=== PATIENT | female | born 1980 | race Native Hawaiian/Other Pacific Islander ===

== ENCOUNTER 2017-04-04 12:40 | Observation (INO) | payer OTHER ==
[~2017-04-04] VITALS: Ht 180.3 cm; Wt 145.4 kg
[2017-04-04 12:50] VITALS: BP 168/102; TEMP 99
[2017-04-04 13:46] LABS: PLATELET COUNT 281 K/uL (152-353)
[2017-04-04 13:50] VITALS: BP 138/94
[2017-04-04 13:50] LABS: POTASSIUM 3.5 mmol/L (3.6-5.2); SODIUM 136 mmol/L (136-145)
[2017-04-04 14:20] VITALS: BP 145/97
[2017-04-04 14:37] LABS: PARTIAL THROMBOPLASTIN TIME 27.2 SECONDS (24.5-33.6)
[2017-04-04 14:55] VITALS: BP 146/99
--- NOTE | 2017-04-04 15:30 | NUR ---
Pt. ADMITTED TO ROOM 1114. Pt. C/O CHEST PAIN. ONSET THIS AM.
[2017-04-04 17:44] VITALS: BP 117/79; TEMP 98.3; Ht 180.3 cm; Wt 145.4 kg
[2017-04-04 20:08] VITALS: BP 111/56; TEMP 98.9
[2017-04-04] MEDS ORDERED: BENADRYL ALLERG25 MG OR (21:10)
[2017-04-04] MEDS ORDERED: LOVASTATIN20 MG OR (21:11)
[2017-04-04] MEDS ORDERED: LORA1TAB17 PO (21:12)
[2017-04-04] MEDS ORDERED: RANITIDINE 150150 MG PO (21:12)
[2017-04-04] MEDS ORDERED: AMRIX15 MG OR (21:15)
[2017-04-04] MEDS ORDERED: PARO20TA3 PO (21:16)
[2017-04-04] MEDS ORDERED: TRIA37.541 PO (21:17)
[2017-04-04] MEDS ORDERED: POT CHLORIDE10 MEQ OR (21:17)
[2017-04-05] VITALS: BP 103/60; TEMP 97.8
[2017-04-05 04:00] VITALS: BP 103/66; TEMP 97.7
[2017-04-05 06:34] LABS: PLATELET COUNT 252 K/uL (152-353)
[2017-04-05 07:07] LABS: POTASSIUM 2.9 mmol/L (3.6-5.2); SODIUM 136 mmol/L (136-145)
[2017-04-05 07:58] VITALS: BP 109/65; TEMP 97.9
[2017-04-05 12:00] VITALS: BP 88/51; TEMP 97.8
== END 2017-04-05 12:00 | disposition home or self-care (01) ==
LOC: ED 12:40 → MED/SURG 15:10
PROVIDERS: ADMIT Family Medicine
DX: R07.89 Other chest pain (principal); I10 Essential (primary) hypertension; E78.4 Other hyperlipidemia; K21.9 Gastro-esophageal reflux disease without esophagitis; E87.6 Hypokalemia; E66.8 Other obesity
CPT/HCPCS: 36415; 80053; 82550; 83735; 84484; 85027; 85610; 85730; 93005; 96372; 96374; 96375; 99220; 99284; G0378; J1650; J1885; J2270

== ENCOUNTER 2021-11-04 13:44 | Emergency (ER) | payer OTHER ==
[~2021-11-04] VITALS: Ht 175.3 cm; Wt 149.2 kg
[~2021-11-04 13:44] MED LIST: AMRIX15 MG OR; BENADRYL ALLERG25 MG OR; LORA1TAB17 PO; LOVASTATIN20 MG OR; PARO20TA3 PO; POT CHLORIDE10 MEQ OR; RANITIDINE 150150 MG PO; TRIA37.541 PO
[2021-11-04 13:50] VITALS: BP 156/101; TEMP 98.1
[2021-11-04 14:00] VITALS: BP 151/95
[2021-11-04 14:30] VITALS: BP 147/97
[2021-11-04 14:31] LABS: PARTIAL THROMBOPLASTIN TIME 28.5 SECONDS (24.5-33.6)
[2021-11-04 14:34] LABS: POTASSIUM 3.3 mmol/L (3.6-5.2)
[2021-11-04 14:40] LABS: PLATELET COUNT 274 K/uL (152-353)
[2021-11-04 15:00] VITALS: BP 138/99
[2021-11-04 15:30] VITALS: BP 155/97
== END 2021-11-04 16:47 | disposition still patient (30) ==
LOC: ED 13:44 → MED/SURG 15:28 → ED 15:28
PROVIDERS: Hospitalist
DX: R07.89 Other chest pain (principal); R06.02 Shortness of breath; Z20.822 Contact with and (suspected) exposure to COVID-19
CPT/HCPCS: 36415; 80053; 82550; 83880; 84484; 85027; 85610; 85730; 87635; 93005; 99284; U0003